=== PATIENT | female | born 1990 | race Caucasian/White ===

== ENCOUNTER 2017-01-15 08:53 | Emergency (ER) | payer MEDICAID ==
[~2017-01-15] VITALS: Ht 162.6 cm; Wt 63.5 kg
[2017-01-15 08:59] VITALS: BP 116/62
--- NOTE | 2017-01-15 09:01 | NUR ---
Patient ambulated to bed 05.
--- NOTE | 2017-01-15 09:07 | NUR ---
Dr. Blevins evaluating patient at bedside.
--- NOTE | 2017-01-15 09:08 | NUR ---
PT PRESENTS TO ER W/C/O ABDOMINAL BLOATING AND INTERMITTENT PAIN X1 YR. PT STATES THE PAIN STARTED 4 MONTHS AGO, BUT THE BLOATING HAS BEEN GOING ON OVER A YEAR. PT STATES SHE FEELS ABDOMINLA PAIN AFTER EATING;PT FEELS NAUSEOUS BUT DENIES V/D; SKIN IS PINK/WARM/DRY; AAOX4 WITH EVEN AND STEADY GAIT; LUNGS CLEAR BL; HR EVEN AND REGULAR; PT DENIES ANY FEVER, CP, SOB, OR COUGH AT THIS TIME; PATIENT STATES PAIN OF 0/10 AT THIS TIME; PATIENT POSITIONED FOR COMFORT; HOB ELEVATED; BEDRAILS UP X2; BED DOWN.
[2017-01-15] MEDS ORDERED: PANTOPRAZOLE 40 MG TABEC PO ONE (09:15)
--- NOTE | 2017-01-15 09:24 | NUR ---
PT WENT TO ULTRASOUND ACCOMPANIED BY TECH.
--- NOTE | 2017-01-15 10:00 | NUR ---
Patient back from US via wheelchair per tech.
--- NOTE | 2017-01-15 10:26 | NUR ---
DR MONDRAGON AT BEDSIDE.
[2017-01-15 10:30] VITALS: BP 107/62
--- NOTE | 2017-01-15 10:30 | NUR ---
Patient discharged with v/s stable. Written and verbal after care instructions given and explained.Patient alert, oriented and verbalized understanding of instructions. Ambulatory with steady gait. All questions addressed prior to discharge. ID band removed. Patient advised to follow up with PMD. Rx of MAALOX AND PROTONIX given. Patient educated on indication of medication including possible reaction and side effects. Opportunity to ask questions provided and answered.
== END 2017-01-15 10:30 | disposition home or self-care (01) ==
LOC: MED 08:53
DX: K29.00 Acute gastritis without bleeding (principal); Z88.8 Allergy status to other drugs, medicaments and biological substances; Z88.2 Allergy status to sulfonamides
CPT/HCPCS: 76700; 76856; 81002; 81025; 99284; Q0092

== ENCOUNTER 2017-02-17 06:33 | Emergency (ER) | payer MEDICAID, OTHER ==
[~2017-02-17] VITALS: Ht 162.6 cm; Wt 63.5 kg
[2017-02-17 06:45] VITALS: BP 120/77
--- NOTE | 2017-02-17 07:05 | NUR ---
PT BEING EVALUATED IN TRIAGE BY
[2017-02-17 07:29] VITALS: BP 113/77
--- NOTE | 2017-02-17 07:29 | NUR ---
Patient discharged with v/s stable. Written and verbal after care instructions given and explained. Patient alert, oriented and verbalized understanding of instructions. Ambulatory with steady gait. All questions addressed prior to discharge. ID band removed. Patient advised to follow up with PMD. Rx of TYLENOL W CODEINE ELIXIR/Z-PACK/SUDAFED given. Patient educated on indication of medication including possible reaction and side effects. Opportunity to ask questions provided and answered.
== END 2017-02-17 07:29 | disposition home or self-care (01) ==
LOC: MED 06:33
DX: J32.9 Chronic sinusitis, unspecified (principal); J02.9 Acute pharyngitis, unspecified; R05 Cough; H92.09 Otalgia, unspecified ear; Z88.2 Allergy status to sulfonamides; Z88.8 Allergy status to other drugs, medicaments and biological substances
CPT/HCPCS: 99283

== ENCOUNTER 2018-10-23 19:08 | Emergency (ER) | payer OTHER ==
[~2018-10-23] VITALS: Ht 162.6 cm; Wt 68.0 kg
[2018-10-23 19:13] VITALS: BP 117/62
--- NOTE | 2018-10-23 19:13 | NUR ---
TO BED # 03 AMBULATORY
--- NOTE | 2018-10-23 19:21 | NUR ---
28 Y FEMALE C/O SORETHROAT, NON-PRODUCTIVE COUGH, LEFT EAR CLOGGED, FOR 2 WEEKS. PAIN COMPLAINS OF CHEST PAIN WHEN SHE IS COUGHING. HEADACHE PAIN 4/10 AT THE MOMENT. +REDNESS IN THROAT. VSS AT THIS TIME. AA0X4. BED IS DOWN, LOCKED, BED RAIL X 1, ERMD NOTIFIED. PMH- DENIES
--- NOTE | 2018-10-23 19:25 | NUR ---
DR SCHULTZ AT BEDSIDE
[2018-10-23 20:35] VITALS: BP 116/64
--- NOTE | 2018-10-23 20:35 | NUR ---
DR SCHULTZ AT BEDSIDE RE-EVALUATING
--- NOTE | 2018-10-23 20:35 | NUR ---
Patient discharged with v/s stable. Written and verbal after care instructions given and explained. Patient verbalized understanding. Ambulatory with steady gait. All questions addressed prior to discharge. Advised to follow up with PMD.
== END 2018-10-23 20:35 | disposition home or self-care (01) ==
LOC: MED 19:08
DX: J06.9 Acute upper respiratory infection, unspecified (principal); Z88.2 Allergy status to sulfonamides; Z88.8 Allergy status to other drugs, medicaments and biological substances
CPT/HCPCS: 71046; 99283